=== PATIENT | male | born 1980 | race Caucasian/White ===

== ENCOUNTER 2021-04-28 18:45 | Day surgery (SDCO) | payer OTHER ==
[~2021-04-28] VITALS: Ht 182.9 cm; Wt 119.0 kg
[2021-04-28 19:59] LABS: BASOPHIL 1.2 % (0-2); EOSINOPHIL 3.1 % (0-5); HCT 41.9 % (42.0-52.0); HGB 13.6 g/dl (13.2-18.0); LYMPHOCYTE 35.5 % (15-48); MCH 28.6 pg (25.0-31.0); MCHC 32.5 g/dL (32.0-36.0); MPV 10.5 fL (6.0-9.5); NEUTROPHIL 52.9 % (41-80); NRBC 0; PLT 236 K/uL (150-400); RBC 4.76 M/uL (4.70-6.00); RDW 12.3 % (11.5-14.0); WBC 6.7 K/uL (4.0-10.5)
[2021-04-28 20:09] LABS: ALBUMIN 3.6 g/dL (3.4-5.0); BILIRUBIN - TOTAL 0.4 mg/dL (0.2-1.0); CREATININE 0.85 mg/dL (0.67-1.17); GLOBULIN (CALCULATION) 3.1 g/dL; POTASSIUM 4.4 mmol/L (3.5-5.1); TOTAL PROTEIN 6.7 g/dL (6.4-8.2)
[2021-04-28 20:17] LABS: PRO-BNP 312 pg/mL (<125)
[2021-04-28 21:41] LABS: AMPHETAMINES NEGATIVE (NEGATIVE); BARBITURATES NEGATIVE (NEGATIVE); ECSTASY (MDMA) NEGATIVE (NEGATIVE); MARIJUANA (THC) NEGATIVE (NEGATIVE); METHADONE NEGATIVE (NEGATIVE); OPIATES NEGATIVE (NEGATIVE); OXYCODONE NEGATIVE (NEGATIVE)
[2021-04-29 06:21] LABS: BASOPHIL 0.9 % (0-2); EOSINOPHIL 3.8 % (0-5); HCT 41.5 % (42.0-52.0); HGB 13.3 g/dl (13.2-18.0); LYMPHOCYTE 38.3 % (15-48); MCH 28.4 pg (25.0-31.0); MCV 88.7 fL (78.0-100.0); MONOCYTE 7.2 % (0-12); MPV 10.8 fL (6.0-9.5); NEUTROPHIL 49.5 % (41-80); NRBC 0; PLT 229 K/uL (150-400); RBC 4.68 M/uL (4.70-6.00); RDW 12.5 % (11.5-14.0); WBC 7.7 K/uL (4.0-10.5)
[2021-04-29 06:46] LABS: ALBUMIN 3.1 g/dL (3.4-5.0); BILIRUBIN - TOTAL 0.4 mg/dL (0.2-1.0); BUN/CREAT RATIO (CALC) 18.8 RATIO; CREATININE 0.85 mg/dL (0.67-1.17); GLOBULIN (CALCULATION) 3.4 g/dL; POTASSIUM 4.3 mmol/L (3.5-5.1); TOTAL PROTEIN 6.5 g/dL (6.4-8.2)
[2021-04-29 06:52] LABS: CKMB 1.3 ng/mL (0.0-3.6)
[2021-04-29] MEDS ORDERED: NORCO 5-325 TA1 EACH PO (12:53)
== END 2021-04-29 14:10 | disposition home or self-care (01) ==
LOC: FER 18:45 → FMS 22:19
PROVIDERS: Nurse Practitioner; Physician Assistant; ADMIT Internal Medicine
DX: R07.89 Other chest pain (principal); M54.9 Dorsalgia, unspecified; G89.29 Other chronic pain; Q23.0 Congenital stenosis of aortic valve; Z20.822 Contact with and (suspected) exposure to COVID-19
CPT/HCPCS: 36415; 71045; 80053; 80061; 80305; 82553; 83735; 83880; 84443; 84484; 85025; 85379; 93005; G0378; J1650; U0002